=== PATIENT | male | born 1950 | race Caucasian/White ===

== ENCOUNTER 2016-11-19 17:26 | Emergency (ER) | payer MEDICARE, BC ==
[~2016-11-19] VITALS: Ht 172.7 cm; Wt 72.6 kg
[~2016-11-19 17:26] MED LIST: ASPI81TA31 PO; DARI15TA PO; DUTA0.5C PO; FELO5TAB12 PO; FLUD0.1T PO; FURO-151 PO; NEBI10TA2 PO; SIMV40TA2 PO; TERA10CA4 PO
--- NOTE | 2016-11-19 18:25 | NUR ---
Patient discharged to home in stable conditon. Written and verbal after care instructions given. Patient verbalizes understanding of instructions.
[2016-11-19 18:27] VITALS: BP 135/77
== END 2016-11-19 18:28 | disposition home or self-care (01) ==
LOC: ER 17:27
DX: S62.612A Displaced fracture of proximal phalanx of right middle finger, initial encounter for closed fracture (principal); I10 Essential (primary) hypertension; Z79.82 Long term (current) use of aspirin; Z85.3 Personal history of malignant neoplasm of breast; Z95.0 Presence of cardiac pacemaker; Z95.1 Presence of aortocoronary bypass graft; Z88.7 Allergy status to serum and vaccine; X58.XXXA Exposure to other specified factors, initial encounter; Y93.89 Activity, other specified; Y92.89 Other specified places as the place of occurrence of the external cause; Y99.8 Other external cause status
CPT/HCPCS: 73130; A4663

== ENCOUNTER 2023-08-13 20:22 | Emergency (ER) | payer MEDICARE ==
[~2023-08-13] VITALS: Ht 172.7 cm; Wt 74.4 kg
[2023-08-13] MEDS ORDERED: PIPERACILLIN/TAZOBACTAM/D5W 50 ML IV ONE (22:53)
[2023-08-13] MEDS ORDERED: AMOX-430 PO (23:00)
[2023-08-13] MEDS: PIPERACILLIN SODIUM/TAZOBACTAM 3.375 G in IV DEXTROSE 5% 50 ML IV ONE (23:05)
[2023-08-13] MEDS ORDERED: TDAP DIPH,PERTUSS,TET VAC/PF 0.5 ML DISP.SYRIN IM ONE (23:31)
[2023-08-13] MEDS: TDAP DIPH,PERTUSS,TET VAC/PF 0.5 ML DISP.SYRIN IM ONE (23:39)
[2023-08-13 23:52] VITALS: BP 139/68; TEMP 98.5; O2SAT 99
== END 2023-08-13 23:52 | disposition home or self-care (01) ==
LOC: ER 20:26
DX: S71.132A Puncture wound without foreign body, left thigh, initial encounter (principal); Q89.01 Asplenia (congenital); Z98.890 Other specified postprocedural states; Z79.899 Other long term (current) drug therapy; Z79.82 Long term (current) use of aspirin; Z88.5 Allergy status to narcotic agent; W54.0XXA Bitten by dog, initial encounter; Y93.89 Activity, other specified; Y92.89 Other specified places as the place of occurrence of the external cause; Y99.8 Other external cause status
CPT/HCPCS: 99284; 96365; 90715; 90471; J2543; A4606; A4663